=== PATIENT | female | born 1985 | race Caucasian/White ===

== ENCOUNTER → 2021-01-13 | Outpatient (REF) | payer OTHER, BC | LOC: M SFHCWAGY 13:17 | PROVIDERS: ATTEND Nurse Practitioner Women's Health | DX: Z12.4 Encounter for screening for malignant neoplasm of cervix (principal) ==

== ENCOUNTER → 2021-05-27 | Outpatient (CLI) | payer BC ==
[2021-05-27 15:24] LABS: BASO % 0.3 % (0.0-1.0); EOS # 0.3 10^3/uL (0.0-0.5); EOS % 2.4 % (0.0-3.0); HEMATOCRIT 37.3 % (36.0-47.0); HEMOGLOBIN 12.1 g/dl (12.0-15.5); LYMPH # 2.8 10^3/uL (1.5-5.0); MEAN CORPUSCULAR HEMOGLOBIN 27.1 pg (27.0-33.0); MEAN CORPUSCULAR HGB CONC 32.4 g/dl (32.0-36.5); MEAN CORPUSCULAR VOLUME 83.4 fl (80.0-96.0); MONO # 0.5 10^3/uL (0.0-0.8); MONO % 4.6 % (2.0-8.0); NEUTROPHILS % 68.4 % (36.0-66.0); PLATELET COUNT, AUTOMATED 397 10^3/uL (150-450); RED BLOOD COUNT 4.47 10^6/uL (4.00-5.40); WHITE BLOOD COUNT 11.7 10^3/uL (4.0-10.0)
[2021-05-27 16:40] LABS: HEPATITIS C VIRUS ABY INDEX 0.1 INDEX (<0.8); HIV 1&2 SCREEN CENTAUR NEGATIVE (NEGATIVE)
[2021-05-27 16:54] LABS: GC DNA AMPLIFICATION NEGATIVE (NEGATIVE)
== END ==
LOC: M PLALAB 13:42
PROVIDERS: ATTEND Obstetrics & Gynecology
DX: Z34.01 Encounter for supervision of normal first pregnancy, first trimester (principal); Z3A.09 9 weeks gestation of pregnancy

== ENCOUNTER → 2021-07-24 | Outpatient (CLI) | payer BC | LOC: M WHC 11:06 | PROVIDERS: ATTEND Advanced Practice Midwife | DX: Z34.02 Encounter for supervision of normal first pregnancy, second trimester (principal); Z3A.19 19 weeks gestation of pregnancy ==

== ENCOUNTER → 2021-09-18 | Outpatient (CLI) | payer MEDICAID ==
[2021-09-18 14:36] LABS: HEMATOCRIT 29.2 % (36.0-47.0); HEMOGLOBIN 9.4 g/dl (12.0-15.5); MEAN CORPUSCULAR HEMOGLOBIN 28.2 pg (27.0-33.0); MEAN CORPUSCULAR HGB CONC 32.2 g/dl (32.0-36.5); MEAN CORPUSCULAR VOLUME 87.7 fl (80.0-96.0); PLATELET COUNT, AUTOMATED 330 10^3/uL (150-450); RED BLOOD COUNT 3.33 10^6/uL (4.00-5.40); WHITE BLOOD COUNT 15.6 10^3/uL (4.0-10.0)
[2021-09-18 16:17] LABS: GC DNA AMPLIFICATION NEGATIVE (NEGATIVE)
== END ==
LOC: M PLALAB 09:17
PROVIDERS: ATTEND Specialist
DX: Z34.02 Encounter for supervision of normal first pregnancy, second trimester (principal)

== ENCOUNTER → 2021-09-18 | Outpatient (CLI) | payer BC, MEDICAID | LOC: M WHC 14:58 | PROVIDERS: ATTEND Specialist | DX: Z34.02 Encounter for supervision of normal first pregnancy, second trimester (principal) ==

== ENCOUNTER → 2021-10-14 | Outpatient (CLI) | payer OTHER | LOC: M LAB 07:08 | PROVIDERS: ATTEND Obstetrics & Gynecology | DX: R73.09 Other abnormal glucose (principal) ==

== ENCOUNTER → 2021-11-12 | Outpatient (REF) | payer OTHER, MEDICAID | LOC: M SFHCWAGY 12:49 | PROVIDERS: ATTEND Obstetrics & Gynecology | DX: Z36.89 Encounter for other specified antenatal screening (principal); Z3A.36 36 weeks gestation of pregnancy ==

== ENCOUNTER 2021-12-05 07:06 | Inpatient (IN) | payer OTHER ==
[~2021-12-05] VITALS: Ht 149.9 cm; Wt 84.0 kg
[2021-12-05] VITALS (15 sets, daily range): BP systolic 125–175; BP diastolic 72–109
[~2021-12-05 07:06] MED LIST: DSS100CA PO; FERR325T81 PO; MULTTAB20 PO; PROBCAP14 PO
[2021-12-05] MEDS ORDERED: LACTATED RINGER'S 1000 ML IV STA (08:01)
[2021-12-05] MEDS ORDERED: LR 1,000 ML IV SCH (08:05)
[2021-12-05] MEDS ORDERED: ceFAZolin SOD 2 GM in IV 1 EA IV ONE (08:05)
[2021-12-05] MEDS ORDERED: BICITRA 30ML SOLN UDC PO ONE (08:05)
[2021-12-05] MEDS ORDERED: LABETALOL 100MG/20ML VIAL IV STA (08:27)
[2021-12-05 08:33] LABS: HEMATOCRIT 32.7 % (36.0-47.0); HEMOGLOBIN 10.8 g/dl (12.0-15.5); MEAN CORPUSCULAR HEMOGLOBIN 28.3 pg (27.0-33.0); MEAN CORPUSCULAR VOLUME 85.6 fl (80.0-96.0); PLATELET COUNT, AUTOMATED 265 10^3/uL (150-450); RED BLOOD COUNT 3.82 10^6/uL (4.00-5.40); WHITE BLOOD COUNT 14.9 10^3/uL (4.0-10.0)
[2021-12-05] MEDS: PRENATAL VITAMINS CHEWABLE TABLET PO SCH (09:00)
[2021-12-05] MEDS: FERROUS SULFATE 325MG TAB PO SCH (09:00)
[2021-12-05] MEDS ORDERED: ePHEDrine SULFATE 25 MG/5 ML(5MG/ML) SYRINGE As Ordered ONE (09:52)
[2021-12-05] MEDS ORDERED: MORPHINE PRES-FREE INJ 10 MG/10 ML VIAL As Ordered ONE (09:52)
[2021-12-05] MEDS ORDERED: PHENYLephrine 500MCG 5ML (100MCG/ML) SYRINGE As Ordered ONE (09:52)
[2021-12-05] MEDS ORDERED: OXYTOCIN 30 UNITS IN 0.9% NaCl 500ML IV BAG (J2590) As Ordered ONE ×2 (09:53→11:31)
[2021-12-05] MEDS ORDERED: ONDANSETRON 4MG 2ML VIAL As Ordered ONE (10:41)
[2021-12-05] MEDS ORDERED: KETOROLAC 60MG 2ML VIAL As Ordered ONE (10:41)
[2021-12-05] MEDS ORDERED: ONDANSETRON 4MG 2ML VIAL IV PRN ×2 (11:00→11:45)
[2021-12-05] MEDS ORDERED: OXYTOCIN DRIP 30 UNITS in IV 1 EA IV SCH (11:00)
[2021-12-05] MEDS ORDERED: MOM 30ML SUSPENSION UDC PO PRN (11:10)
[2021-12-05] MEDS ORDERED: SIMETHICONE 80MG CHEW TAB PO PRN (11:15)
[2021-12-05] MEDS ORDERED: PERCOCET 5MG/325MG TAB PO PRN ×2 (11:30)
[2021-12-05 11:41] LABS: ALBUMIN 2.4 GM/DL (3.2-5.2); ALT/SGPT 14 U/L (12-78); BILIRUBIN,TOTAL 0.4 MG/DL (0.2-1.0); BLOOD UREA NITROGEN 12 MG/DL (7-18); CALCIUM LEVEL 9.4 MG/DL (8.5-10.1); CARBON DIOXIDE LEVEL 22 MEQ/L (21-32); CHLORIDE LEVEL 109 MEQ/L (98-107); CREATININE FOR GFR 0.84 MG/DL (0.55-1.30); GLOMERULAR FILTRATION RATE > 60.0 (>60); GLUCOSE, FASTING 82 MG/DL (70-100); SODIUM LEVEL 139 MEQ/L (136-145); TOTAL PROTEIN 5.9 GM/DL (6.4-8.2)
[2021-12-05] MEDS ORDERED: NALOXONE INJ 0.4MG/1ML VIAL (J2310 PER 1MG) IV PRN ×2 (11:45)
[2021-12-05] MEDS ORDERED: fentaNYL 100 MCG/2 ML INJECTION IV PRN (11:45)
[2021-12-05] MEDS ORDERED: HYDROMORPHONE HCL 0.5 MG/ 0.5 ML SYRINGE (J1170 PER 1) IV PRN (11:45)
[2021-12-05] MEDS ORDERED: METOCLOPRAMIDE INJ 10MG/2ML VIAL (J2765 PER 1) IV PRN (11:45)
[2021-12-05] MEDS ORDERED: **NOTE PATIENT COMMENT** MISC XX SCH (11:45)
[2021-12-05] MEDS ORDERED: MEPERIDINE INJ 25 MG/ML VIAL (J2175) IV PRN (11:45)
[2021-12-05] MEDS ORDERED: oxyCODONE 5MG TAB PO PRN (11:45)
[2021-12-05] MEDS ORDERED: diphenhydrAMINE 50MG/ML VIAL (J1200) IV PRN (11:45)
[2021-12-05] MEDS: SLF 3 ML SYR IV SCH ×2 (11:45→19:45)
[2021-12-05] MEDS ORDERED: RHOGAM 300 MCG (1500 IU) INJ (J2790) IM SCH (12:00)
[2021-12-05] MEDS: LR 1,000 ML IV SCH ×2 (15:20→19:00)
[2021-12-05] MEDS: KETOROLAC 30 MG/ML 1ML VIAL IV SCH ×2 (16:51→23:05)
[2021-12-05] MEDS: DOCUSATE SODIUM 100MG CAPSULE PO SCH (21:00)
[2021-12-06] VITALS (8 sets, daily range): BP systolic 104–162; BP diastolic 51–90
[2021-12-06] MEDS: LR 1,000 ML IV SCH (03:00)
[2021-12-06] MEDS: SLF 3 ML SYR IV SCH (03:45)
[2021-12-06] MEDS: KETOROLAC 30 MG/ML 1ML VIAL IV SCH (05:11)
[2021-12-06 08:16] LABS: HEMATOCRIT 26.2 % (36.0-47.0); MEAN CORPUSCULAR HEMOGLOBIN 28.3 pg (27.0-33.0); MEAN CORPUSCULAR HGB CONC 32.4 g/dl (32.0-36.5); MEAN CORPUSCULAR VOLUME 87.3 fl (80.0-96.0); PLATELET COUNT, AUTOMATED 233 10^3/uL (150-450); WHITE BLOOD COUNT 14.7 10^3/uL (4.0-10.0)
[2021-12-06 08:18] LABS: HEMOGLOBIN 8.5 g/dl (12.0-15.5)
[2021-12-06] MEDS: PRENATAL VITAMINS CHEWABLE TABLET PO SCH (09:38)
[2021-12-06] MEDS: DOCUSATE SODIUM 100MG CAPSULE PO SCH ×2 (09:38→20:30)
[2021-12-06] MEDS: FERROUS SULFATE 325MG TAB PO SCH (09:38)
[2021-12-06] MEDS ORDERED: ACETAMINOPHEN TAB 650MG DOSE (2X325MG) PO PRN (10:55)
[2021-12-06] MEDS: ACETAMINOPHEN 500 MG TAB PO PRN ×2 (11:24→19:30)
[2021-12-06] MEDS: IBUPROFEN 800 MG TAB PO SCH ×2 (12:48→20:30)
[2021-12-06] MEDS: LABETALOL 100MG TAB PO SCH (21:13)
[2021-12-07] MEDS: ACETAMINOPHEN 500 MG TAB PO PRN ×2 (01:31→08:16)
[2021-12-07 01:44] VITALS: BP 146/80
[2021-12-07] MEDS: IBUPROFEN 800 MG TAB PO SCH ×2 (04:55→13:44)
[2021-12-07 05:44] VITALS: BP 142/83
[2021-12-07] MEDS: PRENATAL VITAMINS CHEWABLE TABLET PO SCH (08:16)
[2021-12-07] MEDS: DOCUSATE SODIUM 100MG CAPSULE PO SCH (08:16)
[2021-12-07] MEDS: FERROUS SULFATE 325MG TAB PO SCH (08:16)
[2021-12-07 08:17] VITALS: BP 142/83
[2021-12-07] MEDS: LABETALOL 100MG TAB PO SCH (08:17)
[2021-12-07] MEDS ORDERED: MEASLES,MUMPS,RUBELLA VACCINE INJ (MMR-II) (90707) SC.IMMUN ONE (09:00)
[2021-12-07] MEDS ORDERED: IBUP80TA PO (12:02)
[2021-12-07] MEDS ORDERED: ACET-683 PO (12:02)
[2021-12-07] MEDS ORDERED: LABE100T6 PO (12:02)
== END 2021-12-07 14:44 | disposition home or self-care (01) | DRG 540 ==
LOC: M LDI 07:06 → M OBS 12:54
PROVIDERS: ADMIT Obstetrics & Gynecology; ATTEND Obstetrics & Gynecology
PROC: 10D00Z1 Extraction of Products of Conception, Low, Open Approach (ICD-10-PCS; principal; 2021-12-05 09:45)
DX: O32.1XX0 Maternal care for breech presentation, not applicable or unspecified (principal); Z3A.39 39 weeks gestation of pregnancy; Z37.0 Single live birth; O13.4 Gestational [pregnancy-induced] hypertension without significant proteinuria, complicating childbirth

== ENCOUNTER → 2022-02-04 | Outpatient (REF) | payer OTHER, MEDICAID ==
[~2022-02-04] MED LIST changes: +ACET-683 PO; +IBUP80TA PO; +LABE100T6 PO
== END ==
LOC: M PLALAB 12:41
PROVIDERS: ATTEND Advanced Practice Midwife
DX: Z12.4 Encounter for screening for malignant neoplasm of cervix (principal)

== ENCOUNTER → 2023-11-09 | Outpatient (CLI) | payer BC ==
[2023-11-09 13:53] LABS: LDH LACTATE DEHYDROGENASE 126 U/L (120-246)
[2023-11-09 13:54] LABS: ALT/SGPT 29 U/L (7.0-40); AST/SGOT 12 U/L (<34); BILIRUBIN,TOTAL 0.6 MG/DL (0.3-1.2); CREATININE FOR GFR 0.63 MG/DL (0.55-1.30); GLOMERULAR FILTRATION RATE > 60.0 (>60)
[2023-11-09 14:05] LABS: HEMATOCRIT 40.2 % (36.0-47.0); MEAN CORPUSCULAR HEMOGLOBIN 26.7 pg (27.0-33.0); MEAN CORPUSCULAR HGB CONC 32.3 g/dl (32.0-36.5); MEAN CORPUSCULAR VOLUME 82.7 fl (80.0-96.0); PLATELET COUNT, AUTOMATED 369 10^3/uL (150-450); RED BLOOD COUNT 4.86 10^6/uL (4.00-5.40); WHITE BLOOD COUNT 11.9 10^3/uL (4.0-10.0)
[2023-11-09 14:15] LABS: TOTAL PROTEIN,RANDOM URINE 13.3 MG/DL (0.0-14.0)
[2023-11-09 14:20] LABS: CREATININE,RANDOM URINE 104.9 MG/DL
[2023-11-09 14:26] LABS: HIV 1&2 SCREEN NEGATIVE (NEGATIVE)
[2023-11-09 14:35] LABS: HEPATITIS C VIRUS ABY INDEX < 0.02 INDEX (<0.8)
[2023-11-09 15:54] LABS: GC DNA AMPLIFICATION NEGATIVE (NEGATIVE)
== END ==
LOC: M PLALAB 10:33
PROVIDERS: ATTEND Obstetrics & Gynecology
DX: O09.521 Supervision of elderly multigravida, first trimester (principal); O10.911 Unspecified pre-existing hypertension complicating pregnancy, first trimester

== ENCOUNTER → 2023-11-18 | Outpatient (CLI) | payer BC | LOC: M PLALAB 09:18 | PROVIDERS: ATTEND Obstetrics & Gynecology | DX: O34.219 Maternal care for unspecified type scar from previous cesarean delivery (principal) ==

== ENCOUNTER → 2024-01-24 | Outpatient (CLI) | payer BC | LOC: M WHC 10:01 | PROVIDERS: ATTEND Nurse Practitioner Family | DX: O10.012 Pre-existing essential hypertension complicating pregnancy, second trimester (principal) ==

== ENCOUNTER → 2024-03-20 | Outpatient (CLI) | payer BC ==
[2024-03-20 14:08] LABS: HEMATOCRIT 32.8 % (36.0-47.0); HEMOGLOBIN 10.6 g/dl (12.0-15.5); MEAN CORPUSCULAR HEMOGLOBIN 27.5 pg (27.0-33.0); MEAN CORPUSCULAR HGB CONC 32.3 g/dl (32.0-36.5); PLATELET COUNT, AUTOMATED 390 10^3/uL (150-450); RED BLOOD COUNT 3.86 10^6/uL (4.00-5.40)
[2024-03-20 14:49] LABS: GLUCOSE CHALLENGE TEST 1 HOUR 95 MG/DL (LESS THAN 140)
[2024-03-20 15:18] LABS: HIV 1&2 SCREEN NEGATIVE (NEGATIVE)
[2024-03-20 15:26] LABS: HEPATITIS C VIRUS ABY INDEX 0.12 INDEX (<0.8)
[2024-03-20 15:40] LABS: GC DNA AMPLIFICATION NEGATIVE (NEGATIVE)
== END ==
LOC: M PLALAB 09:56
PROVIDERS: ATTEND Obstetrics & Gynecology
DX: Z34.82 Encounter for supervision of other normal pregnancy, second trimester (principal)

== ENCOUNTER → 2024-05-18 | Outpatient (REF) | payer BC ==
[~2024-05-18] MED LIST changes: +ASPI81TA26 PO; +LABE200T5 PO; +OMEG350C PO
== END ==
LOC: M SFHCWAGY 12:53
PROVIDERS: ATTEND Specialist
DX: O16.3 Unspecified maternal hypertension, third trimester (principal)